=== PATIENT | male | born 1950 | race Caucasian/White ===

== ENCOUNTER 2018-01-05 11:20 | Emergency (ER) | payer OTHER ==
[~2018-01-05] VITALS: Ht 180.3 cm; Wt 83.9 kg
[~2018-01-05 11:20] MED LIST: ATIVAN2 MG PO; AUGMENTIN875 MG PO; CALCIUM 600 +1 EAC1 PO; CELLCEPT500 MG PO; DAILY MULTIPLE1 EAC2 PO; DESLORATADINE5 MG PO; FISH OIL 1,0001 EA10 PO; FISH OIL 1,0001 EAC8 PO; FLUTICASONE PRO16 GM BOTH NARES; GLUCOSAMINE 1,1 EAC1 PO; INTERFERON SC; LEXAPRO20 MG PO; LORAZEPAM1 MG PO; NUBAIN SC; PANTOPRAZOLE SO40 MG PO; PERCOCET 5/31 TABLET PO; PROCRIT40000 UNI1 SC; RAPAMUNE1 MG PO; RIBAVIRIN600 MG PO; VICODIN 5-3001 EACH PO
[2018-01-05 15:04] VITALS: BP 150/71
== END 2018-01-05 15:07 | disposition home or self-care (01) ==
LOC: EME 11:20
DX: R07.81 Pleurodynia (principal); R19.7 Diarrhea, unspecified; Z94.4 Liver transplant status; Z87.891 Personal history of nicotine dependence
CPT/HCPCS: 71101; 99281; 99283